=== PATIENT | female | born 2000 | race Caucasian/White ===

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

== ENCOUNTER 2018-02-08 13:01 | Emergency (ER) | payer BC ==
[~2018-02-08] VITALS: Ht 170.2 cm; Wt 98.9 kg
[2018-02-08 13:19] VITALS: Ht 170.2 cm; Wt 98.9 kg
[2018-02-08 15:38] VITALS: BP 145/98
== END 2018-02-08 15:13 | disposition home or self-care (01) ==
LOC: ED 13:01
DX: J06.9 Acute upper respiratory infection, unspecified (principal)
CPT/HCPCS: J7613; Q0092